=== PATIENT | female | born 1965 | race Caucasian/White ===

== ENCOUNTER 2016-04-26 18:42 | Emergency (ER) | payer BC ==
[~2016-04-26] VITALS: Ht 157.5 cm; Wt 71.0 kg
[~2016-04-26 18:42] MED LIST: METF1000 PO; NAPR-260 PO
[2016-04-26 18:47] VITALS: Ht 157.5 cm; Wt 71.0 kg
[2016-04-26] MEDS ORDERED: ONDANSETRON (ODT) 4 MG TAB ODT STA (19:30)
[2016-04-26] MEDS ORDERED: OSELTAMIVIR 75 MG CAP PO ONE (19:30)
[2016-04-26] MEDS ORDERED: ACETAMINOPHEN 325 MG TAB PO ONE (19:30)
[2016-04-26] MEDS ORDERED: IBUP-1542 PO (20:09)
[2016-04-26] MEDS ORDERED: D-ME473S18 PO (20:09)
[2016-04-26] MEDS ORDERED: ACET500C5 PO (20:09)
[2016-04-26] MEDS ORDERED: OSLT75C PO (20:09)
--- NOTE | 2016-04-26 20:11 | ERD ---
ER Documentation Chief Complaint Date/Time DATE: 04/26/16 TIME: 20:10 Chief Complaint Cough. Cold, fever and body malaise x3 days HPI This 50-year-old female presents with a 2 day history of cough, fever and body aches. She has no history of vomiting, abdominal pain, diarrhea, neck stiffness , rashes. ROS All systems reviewed and are negative except as per history of present illness. Medications Home Meds Active Scripts Dextromethorphan Hb-Promethazine Hcl (Promethazine DM Syrup) 473 Ml Syrup, 5 ML PO Q6H Y for COUGH, #4 OZ Prov:NOBLE SAMUELS MD 04/26/16 Oseltamivir Phosphate* (Tamiflu*) 75 Mg Capsule, 75 MG PO BID for 5 Days, CAP Prov:NOBLE SAMUELS MD 04/26/16 Acetaminophen* (Tylophen*) 500 Mg Capsule, 1 CAP PO Q6H Y for PAIN AND OR ELEVATED TEMP, #15 CAP Prov:NOBLE SAMUELS MD 04/26/16 Ibuprofen* (Motrin*) 600 Mg Tab, 600 MG PO Q6H Y for PAIN, #15 TAB Prov:NOBLE SAMUELS MD 04/26/16 Naproxen* (Naprosyn*) 500 Mg Tablet, 500 MG PO BID Y for PAIN AND/OR INFLAMMATION, #20 TAB Prov:VIKRAM POE DO 08/14/15 Reported Medications Metformin Hcl* (Metformin Hcl*) 1,000 Mg Tablet, 1000 MG PO BID WITH MEALS, TAB 06/19/14 Allergies Allergies: Coded Allergies: No Known Allergies (Verified Allergy, Mild, 08/14/15) PMhx/Soc Medical and Surgical Hx: pt denies Surgical Hx History of Surgery: No Anesthesia Reaction: No Hx Neurological Disorder: No Hx Respiratory Disorders: No Hx Cardiac Disorders: Yes (htn) Hx Psychiatric Problems: No Hx Miscellaneous Medical Probl: Yes (dm) Hx Alcohol Use: No Hx Substance Use: No Hx Tobacco Use: No Smoking Status: Never smoker Physical Exam Vitals Vital Signs Date Time Temp Pulse Resp B/P Pulse Ox O2 Delivery O2 Flow Rate FiO2 04/26/16 18:47 102.3 108 22 142/81 96 Physical Exam Const: [] Alert, [id number] per Head: Atraumatic Eyes: Normal Conjunctiva ENT: Normal External Ears, Nose and Mouth. Neck: Full range of motion..~ No meningismus. Resp: Clear to auscultation bilaterally. Coarse cough without rales, wheezing or retractions. Cardio: Regular rate and rhythm, no murmurs Abd: Soft, non tender, non distended. Normal bowel sounds Skin: No petechiae or rashes Back: No midline or flank tenderness Ext: No cyanosis, or edema Neur: Awake and alert Psych: Normal Mood and Affect Results 24 hrs Current Medications Medications (Trade) Dose Ordered Sig/Deyvi Route PRN Reason Start Time Stop Time Status Last Admin Dose Admin Acetaminophen (Tylenol Tab) 650 mg ONCE ONCE PO 04/26/16 19:30 04/26/16 19:32 DC Ondansetron HCl (Zofran Odt) 8 mg ONCE STAT ODT 04/26/16 19:30 04/26/16 19:32 DC Oseltamivir Phosphate (Tamiflu) 75 mg ONCE ONCE PO 04/26/16 19:30 04/26/16 19:32 DC Procedures/MDM Patient presents with febrile illness and URI symptoms and body aches suggestive of influenza. Chest X-ray 1V Interpreted by me: Soft Tissue: No acute abnormalities Bones: No acute abnormalities Mediastinum/Cardiac Silhouette/Lungs: [No acute abnormalities] There is no evidence or signs or symptoms of hypoxemia, respiratory distress, pneumonia, acute abdomen, UTI. She will treated with Tamiflu and fever control and promethazine. The patient was stable with no new complaints during the ER course. Clinically, there is no current evidence to suggest meningitis, sepsis, acute abdomen, pneumonia, acute coronary syndrome, pulmonary embolism, or any other emergent condition appearing to require further evaluation or hospitalization. The patient should certainly return for any new or worsening symptoms per the aftercare instructions. They should otherwise follow-up with her primary care doctor for reevaluation this week. Departure Diagnosis: Primary Impression: Upper respiratory infection URI type: unspecified URI Qualified Code: J06.9 - Upper respiratory tract infection, unspecified type Additional Impression: Influenza-like symptoms Condition: Stable Patient Instructions: Fever Control (Adult), Influenza (Adult), Uri, Viral, No Abx (Adult) Additional Instructions: X-ray appears normal. Likely influenza and we will treat for this. Recheck for new or worsening symptoms or primary care doctor per NOBLE SAMUELS MD Apr 26, 2016 20:10
--- NOTE | 2016-04-26 20:34 | RADRPT ---
PROCEDURE: XR Chest. CLINICAL INDICATION: Fever TECHNIQUE: A single portable view of the chest was obtained. COMPARISON: 08/14/2015 FINDINGS: The cardiomediastinal silhouette is within normal limits. The lungs and pleural spaces are clear. The soft tissues and osseous structures are unremarkable. IMPRESSION: No acute cardiopulmonary disease. RPTAT: HPNM Physician Allison Date Time Electronically viewed and signed by Kimani Aleman Physician on 04/26/2016 20:34 /
== END 2016-04-26 20:23 | disposition home or self-care (01) ==
LOC: FTE 18:42
DX: J06.9 Acute upper respiratory infection, unspecified (principal); R50.9 Fever, unspecified; R52 Pain, unspecified; I10 Essential (primary) hypertension; E11.9 Type 2 diabetes mellitus without complications; Z79.84 Long term (current) use of oral hypoglycemic drugs
CPT/HCPCS: 71010; 99284; Z7610